=== PATIENT | male | born 1985 | race Caucasian/White ===

== ENCOUNTER 2020-10-24 20:13 | Emergency (ER) | payer MEDICAID, SELFPAY ==
[2020-10-24 20:02] VITALS: BP 127/86; PULSE 121; RESP 26; TEMP 37.3; O2SAT 100; BMI 25.6
--- NOTE | 2020-10-24 20:12 | [facility].EDPSYCH ---
ED Disposition Clinical Impression: Acute anxiety Disposition: Home, Self-Care Condition on Discharge: Good Instructions: DI for Anxiety -- Adult Additional Instructions: see pcp for follow up Referrals: Provider,Referral, [Primary Care Provider] - - Critical Care Critical Care Time: No Attestation: On , the high probability of a clinically significant, sudden or life threatening deterioration of the following system(s) required my full and direct attention, intervention and personal management. The time I documented below is in addition to time spent performing reported procedures but includes the following listed in this critical care notation. Medical Decision Making - Medical Records Medical records reviewed: Yes: I reviewed the patient's medical records. - Leoncio Inquiry Pt receiving controlled substance: No Vital Signs: 10/24/20 20:02 Temperature 99.1 F Temperature Source Oral Pulse Rate [Right Brachial] 121 H Respiratory Rate 26 H Blood Pressure [Right Arm] 127/86 Blood Pressure Mean [Right Arm] 99 Blood Pressure Source [Right Arm] Automatic Cuff Blood Pressure Position [Right Arm] Sitting 02 Sat by Pulse Oximetry 100 Oxygen Delivery Method Room Air - Lab Data Lab results reviewed: Yes: I reviewed the patient's lab results. Lab Results 10/24/20 20:00: WBC 14.8 H, RBC 5.68, Hgb 16.4, Hct 48.6, MCV 85.5, MCH 28.8, MCHC 33.7, RDW 12.6, Plt Count 322, MPV 8.2, Neut % (Auto) 76.4, Lymph % (Auto) 16.4, Meigs % (Auto) 5.8, Eos % (Auto) 0.8, Baso % (Auto) 0.6, Neut # (Auto) 11.3 H, Lymph # (Auto) 2.4, Meigs # (Auto) 0.9, Eos # (Auto) 0.1, Baso # (Auto) 0.1 10/24/20 20:00: Sodium 147 H, Potassium 4.3, Chloride 106, Carbon Dioxide 31 H, Anion Gap 14.3, BUN 16, Creatinine 1.20, Estimated Creat Clear 76, Estimated GFR 69, Est GFR ( Amer) 83, Glucose 88, Calcium 10.9 H, Total Bilirubin 1.2, AST 91 H, ALT 61, Alkaline Phosphatase 142 H, Total Protein 9.0 H, Albumin 5.0, Globulin 4.0 H, Albumin/Globulin Ratio 1.3 Result diagrams: 10/24/20 20:00 10/24/20 20:00 Orders (Tests/Meds): ORDERS Category Date Time Status Drug Screen,Urine Stat Lab 10/24/20 20:11 Ordered Urinalysis and Microscopic Stat Lab 10/24/20 20:11 Ordered Medical Decision Narrative: stable exam and labs at this time Psych HPI - General Chief Complaint: Psychiatric Symptoms Stated Complaint: wants to find out if he's alive Time Seen by Provider: 10/24/20 20:12 Mode of Arrival: EMS Source of Information: Patient, EMS, Medical Record Limitations: No Limitations Description of Symptoms (Recalled from ER Triage Doc. by RN): pt expresses desire to find out if he's still alive . according to ems he was acting erractic downstairs and reported to pd that he was the [place] and is happy to be alive. was offered to have [facility] or come to hospital and he came to hospital. - History of Present Illness HPI Narrative: pt with no specific c/o - pt with reported use of heroin, amphetamine and adderall at times but none last 24 hrs - MD complaint: altered mental status Onset (ago): hour(s) Duration: intermittent History of same: Yes Context: recent drug abuse Associated psychiatric symptoms: racing thoughts Associated symptoms: denies other symptoms Treatments prior to arrival: none - Related Data Home Medications Medication Instructions Recorded Confirmed No Known Home Medications 10/24/20 10/24/20 Allergies Allergy/AdvReac Type Severity Reaction Status Date / Time No Known Allergies Allergy Verified 10/24/20 20:09 [facility] History - Hepatitis A Screen Drug use history?: No High risk sexual behaviors?: No History of sexually transmitted infection?: No Currently employed?: No Childcare worker?: No Do you have indoor plumbing?: Yes Do you have electricity?: Yes Attestation statement:: This patient has been screened for Hepatitis A risk factors. I have reviewed the patient's past medical his
[2020-10-24 20:26] LABS: Alanine Aminotransferase 61 U/L (12-78); Albumin/Globulin Ratio 1.3 (1.1-1.8); Alkaline Phosphatase 142 U/L (38-126); Anion Gap 14.3 mEq/L (5-15); Aspartate Amino Transferase 91 U/L (17-59); Bilirubin,Total 1.2 mg/dl (0.2-1.3); Blood Urea Nitrogen 16 mg/dl (9-20); Calcium 10.9 mg/dl (8.4-10.2); Carbon Dioxide 31 mmol/L (22.0-30.0); Chloride 106 mmol/L (98-107); Creatinine Clearance Estimated 76 mL/min (50-200); Estimated Glomerular Filt Rate 69 ml/min (>60); GFR (African American) 83 ML/MIN (>60); Glucose 88 mg/dl (74-100); Potassium 4.3 mmoL/L (3.5-5.1); Sodium 147 mmol/L (136-145)
[2020-10-24 20:36] LABS: Basophils # 0.1 K/mm3 (0-0.2); Basophils % 0.6 % (0.1-2.0); Eosinophils # 0.1 K/mm3 (0.0-0.4); Eosinophils % 0.8 % (0.1-12.0); Hematocrit 48.6 % (42.0-52.0); Hemoglobin 16.4 g/dL (14.1-18.0); Lymphocytes # 2.4 K/mm3 (0.7-4.5); Lymphocytes % 16.4 % (10-50); Mean Corpuscular HGB Conc 33.7 g/dL (31.8-35.4); Mean Corpuscular Hemoglobin 28.8 pg (27.0-31.2); Mean Corpuscular Volume 85.5 fl (80-94); Mean Platelet Volume 8.2 fl (7.4-10.4); Monocytes # 0.9 K/mm3 (0.1-1.0); Monocytes % 5.8 % (1.7-9.3); Neutrophils # 11.3 K/mm3 (1.8-7.8); Neutrophils % 76.4 % (37.0-80.0); Platelet Count 322 K/mm3 (142-424); Red Blood Count 5.68 M/mm3 (4.60-6.20); Red Cell Distribution Width 12.6 % (11.5-17.5); White Blood Count 14.8 K/mm3 (4.8-10.8)
[2020-10-24 20:45] VITALS: BP 138/86; PULSE 105; RESP 18; TEMP 37.2; O2SAT 98
== END 2020-10-24 20:51 | disposition home or self-care (01) ==
PROVIDERS: Emergency Provider Emergency Medicine
DX: F41.0 Panic disorder [episodic paroxysmal anxiety] (principal)
CPT/HCPCS: 80053; 85025; 96365; 99282